=== PATIENT | male | born 1985 | race American Indian/Alaskan Native ===

== ENCOUNTER 2019-10-08 18:34 | Emergency (ER) | payer SELFPAY ==
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
== END 2019-10-08 20:57 ==
LOC: FB.ED 18:34
DX: S06.0X0A Concussion without loss of consciousness, initial encounter (principal); S02.32XA Fracture of orbital floor, left side, initial encounter for closed fracture; H05.822 Myopathy of extraocular muscles, left orbit; Y04.2XXA Assault by strike against or bumped into by another person, initial encounter
CPT/HCPCS: 36415; 70450; 70486; 80053; 80307; 85025; 99285-25